=== PATIENT | male | born 1935 | race Caucasian/White ===

== ENCOUNTER 2020-11-09 02:13 | Emergency (ER) | payer MEDICARE, MEDICAID, SELFPAY ==
[2020-11-09 03:09] VITALS: BP 166/83; PULSE 83; RESP 18; TEMP 37.1; O2SAT 96
--- NOTE | 2020-11-09 03:19 | ED_ITS ---
HPI - Male Genitourinary General Chief complaint: Urogenital-Male Stated complaint: blood in urine Time Seen by Provider: 11/09/20 02:53 Source: EMS and other Mode of arrival: EMS History of Present Illness HPI Narrative: 85-year-old male brought in by EMS for reported acute onset of hematuria by nursing staff and is currently being treated for UTI. Patient denies any fever, chills, GI or symptoms and denies any shortness of breath o r chest pain. Related Data Allergies Allergy/AdvReac Type Severity Reaction Status Date / Time No Known Allergies Allergy Unverified 11/09/20 02:53 Review of Systems Review of Systems: Pertinent positives and negatives as stated in HPI and 10 point review of systems unable to be completed secondary to patient's underlying medical conditions. [facility] Past Medical History Source: nursing notes reviewed Social History Social History Advance Directives: No Advance Directives Information Provided: No Physical Exam Vital Signs: Vital Signs: Last Vital Signs Temp 98.8 F 11/09/20 03:09 Pulse 83 11/09/20 03:09 Resp 18 11/09/20 03:09 BP 166/83 H 11/09/20 03:09 Pulse Ox 96 11/09/20 03:09 Body Mass Index 0.0 VITAL SIGNS: Reviewed. GENERAL: Well developed, well nourished, in no acute distress. HEAD: Normocephalic/atraumatic EYES: PERRLA, EOMI OROPHARYNX: no oral lesions noted, posterior pharynx clear LUNGS: Normal breath sounds. No adventitious sounds or accessory muscle use. SpO2<96> CARDIOVASCULAR: Regular rate and rhythm without noted murmurs, no JVD or lower extremity edema. ABDOMEN: Soft, non-tender, non-distended with bowel sounds. : Delgadillo catheter with significant hematuria noted. SKIN: Inspection of the skin reveals no rashes NEUROLOGIC: Alert and oriented x 4. Strength and sensation to light touch were grossly intact x 4. Course Course Course Narrative: 85-year-old male with history and clinical presentation consistent on evaluation of traumatic pulling such that it resulted in significant bleeding. The catheter was removed and replaced with a new 1 with irrigation of 500 mL of saline with good clearance of blood and recovering yellow urine. The catheter bag was replaced and patient is stable for transfer back to the SNF and there is no indications for further laboratory or imaging workup. Discharge Plan Discharge Clinical Impression: Hematuria, Complication of Delgadillo catheter Patient Disposition: [facility] Instructions: Hematuria (ED), Delgadillo Catheter Placement and Care (ED) Additional Instructions: 1. Patient may resume all prescribed medications. 2. Recommend following up with primary care provider and/or Urology within the next 1-2 days for re-evaluation. Return to the ER for acute worsening of problems. Referrals: Jonel Culver MD [Primary Care Provider] - 2 days
--- NOTE | 2020-11-09 03:57 | PC.NURSE ---
PER MD BALLOON DEFLATED, CATH REPOSITIONED, BALLOON REINFLATED AND PATIENT MANUALLY IRRIGATED UNTIL URINE RAN CLEAR. IT APPEARS D/T POSITIONING AND CATH SECURE BEING OFF THAT IS WHAT CAUSED THE HEMATURIA. CABRERA AT [facility] AND HAS UPDATED AND GIVEN PLAN OF CARE
== END 2020-11-09 04:46 | disposition skilled nursing facility (03) ==
PROVIDERS: Emergency Provider Student in an Organized Health Care Education/Training Program; PCP Family Medicine Geriatric Medicine
DX: R31.9 Hematuria, unspecified (principal); T83.091A Other mechanical complication of indwelling urethral catheter, initial encounter; I10 Essential (primary) hypertension; I48.91 Unspecified atrial fibrillation; E78.5 Hyperlipidemia, unspecified; F03.90 Unspecified dementia, unspecified severity, without behavioral disturbance, psychotic disturbance, mood disturbance, and anxiety
CPT/HCPCS: 51702; 99283; 99284

== ENCOUNTER 2020-11-16 09:31 | Emergency (ER) | payer MEDICARE, MEDICAID, SELFPAY ==
--- NOTE | ~2020-11-16 | CT_ITS ---
EXAMINATION: CT ABDOMEN AND PELVIS WITH CONTRAST CLINICAL INFORMATION: Status post recent catheter at [facility]. Now presents with hematuria question perforation. COMPARISON: None TECHNIQUE: Multidetector volumetric images were obtained from the superior aspect of the liver through the pubic symphysis following administration 85 mL of Omnipaque 350 intravenous contrast. Sagittal and coronal reformatted images were obtained on the technologist's workstation. Oral contrast: No This CT examination was performed using dose optimization techniques as appropriate, variously including the following: *Automated exposure control *Adjustment of mA and/or kV according to patient size (this includes techniques or standardized protocols for targeted exams where dose is matched to indication/reason for exam; i.e. extremities or head) *Use of iterative reconstruction technique DLP: 581 mGy-cm FINDINGS: LUNG BASES: There is small bilateral pleural effusion with left lower lobe consolidation and atelectatic/minimal consolidation changes right lung base. LIVER, GALLBLADDER, AND BILIARY TREE: The liver is normal in size, shape, and attenuation. No focal hepatic lesion or biliary ductal dilatation is present. The gallbladder is unremarkable with no evidence of radiopaque gallstones, gallbladder wall thickening, or obvious pericholecystic inflammatory changes. PANCREAS: Unremarkable. SPLEEN: The spleen is unremarkable. A small accessory splenule inferior to the hilum.. ADRENAL GLANDS: Unremarkable. KIDNEYS AND URETERS: The kidneys are normal in size, shape, and attenuation. No hydronephrosis, hydroureter, or calculi seen. No perinephric stranding or hematoma seen. Large exophytic cyst seen in the mid to lower pole left kidney measuring 5.8 x 5.4 x 4.70 cm. There is a smaller cortical cyst mid and upper pole left kidney. Tiny cysts are seen in the lower pole right kidney. There is extensive vascular calcification the renal hilum BLADDER: The bladder is distended with mild posterior wall thickening. There is mild prostate enlargement with extension into the base of bladder. GASTROINTESTINAL TRACT: The scattered stool and gas seen throughout the colon without any significant distention. The small bowel loops are normal caliber. Appendix is not visualized. There is a supraumbilical small hernia containing fat best visualized on sagittal exam 56/7. ABDOMINAL WALL: No significant hernia is appreciated. LYMPH NODES: Normal. VASCULAR: There is aorto iliac bilateral grafts dense. PELVIC VISCERA: Does not stomach mild presacral soft tissue thickening but no abscess or fluid collection seen.. OSSEOUS STRUCTURES: There are degenerative disc changes with vacuum disc phenomena and spondylosis L5-S1 disc level. CT/CT abdomen pelvis w con IMPRESSION: Moderate bladder distention likely secondary to prostate enlargement extending the base of bladder. There is no hydroureteronephrosis or radiopaque renal calculi. There are bilateral renal cysts but no perinephric hematoma or stranding. Small right pleural effusion with right lower lobe atelectasis/infiltrate. There is left lower lobe consolidation with minimal left pleural effusion.
[2020-11-16 09:35] VITALS: BP 159/65; PULSE 80; O2SAT 97
[2020-11-16 09:46] VITALS: BP 155/62; PULSE 87; RESP 15; TEMP 36.3; O2SAT 96
[2020-11-16 09:55] VITALS: BP 155/62; PULSE 89; RESP 22; TEMP 36.3; O2SAT 97; BMI 28.5
[2020-11-16 10:24] LABS: MANUAL DIFF FLAG NO
[2020-11-16 10:26] LABS: Basophils Percent Auto 0.5 % (0-2); Eosinophils Absolute Auto 0.6 X10*3/uL (0.0-0.4); Eosinophils Percent Auto 10.9 % (0-4); Hematocrit 29.8 % (42-52); Hemoglobin 9.5 g/dl (14.0-18.0); Imm Gran Abs Auto 0.02 X10*3/uL (0.00-0.03); Imm Gran Pct Auto 0.4 % (0.0-0.4); Mean Corpuscular HGB Conc 31.9 g/dl (31.0-36.0); Mean Corpuscular Hemoglobin 25.9 pg (27.0-33.0); Mean Corpuscular Volume 81.2 fL (80-98); Mean Platelet Volume 9.5 fL (9.4-12.4); Monocytes Absolute Auto 0.6 X10*3/uL (0.1-1.2); Monocytes Percent Auto 10.2 % (2-11); Neutrophils Absolute Auto 3.4 X10*3/uL (2.0-8.3); Platelet Count 196 X10*3/uL (160-400); Red Blood Count 3.67 X10*6/uL (4.60-5.80); Red Cell Distribution Width 14.9 % (11.0-16.0); White Blood Count 5.7 X10*3/uL (4.8-10.8)
[2020-11-16 10:30] LABS: INTERNATIONAL NORM RATIO 2.7 (0.9-1.1); Prothrombin Time 31.2 SEC (9.9-13.0)
[2020-11-16 11:00] LABS: Alanine Aminotransferase 10 U/L (0-40); Albumin Level 2.8 g/dL (3.5-5.0); Alkaline Phosphatase 100 U/L (39-117); Anion Gap 10 (12-20); Aspartate Amino Transferase 14 U/L (5-37); Bilirubin Total 0.7 mg/dL (0.0-1.0); Blood Urea Nitrogen 11 mg/dL (9-16); Calcium 7.9 mg/dL (8.4-10.2); Carbon Dioxide 25 mmol/L (22-29); Chloride 110 mmol/L (96-108); Creatinine Clr Calc Pharmacy 86.2; Estimated Glomerular Filt Rate > 60; Glucose Random 112 mg/dL (60-115); Magnesium 1.9 mg/dL (1.6-2.6); Potassium 3.5 mmol/L (3.3-5.1); Sodium 141 mmol/L (135-145); Total Protein 4.9 g/dL (6.5-8.0)
--- NOTE | 2020-11-16 11:55 | ED.MALEGU ---
HPI - Male Genitourinary General Chief complaint: General Medical Stated complaint: BLEEDING FROM URETHRA AFTER TUGGING F/C PER SNF Time Seen by Provider: 11/16/20 09:49 Source: patient, EMS and RN notes reviewed Mode of arrival: EMS Limitations: other (Poor historian) History of Present Illness HPI Narrative: 85-year-old male with a past medical history of dementia, atrial fibrillation currently on Coumadin, non rheumatic aortic valve stenosis, hypertension, hyperlipidemia, PVD, anemia, unsteady on his feet, BPH and recurrent UTIs who had a chronic Delgadillo in the past although was recently seen here on 11/09/2020 due to he pulled out his Delgadillo catheter and had hematuria therefore he was sent back to the [facility] without the Delgadillo catheter due to he was pulling his catheter out and they were straight cathing him and then this morning when they attempted to straight cath him he had hematuria therefore they sent him here for further evaluation treatment. On exam patient is noted to have hematuria although he denies any pain and reports he does not feel like he needs to be here. Denies any additional complaints or concerns at this time. MD Complaint: other (Hematuria) Onset (ago): minute(s) (Prior to arrival) Duration: now resolved Location: penis Severity: mild Relieving factors: none Exacerbating factors: urination (Trying to straight cath the patient) Context: trauma ([facility]) Associated symptoms: Reports denies other symptoms Related Data Sexually active: No Previous Rx's Medication Instructions Recorded cefuroxime axetil 500 mg tablet 500 mg PO BID 7 Days #14 tab 11/16/20 Allergies Allergy/AdvReac Type Severity Reaction Status Date / Time No Known Allergies Allergy Unverified 11/09/20 02:53 Review of Systems Review of Systems: Constitutional : No Weight loss, No Fever, No Chills, No Night Sweats, No Fatigue, No Malaise ENT/Mouth : No Hearing loss, No Ear Pain, No Nasal Congestion, No Sinus Pain, No Hoarseness, No sore throat, No Rhinorrhea, No Swallowing Difficulty Eyes: No Eye Pain, No Swelling, No Redness, No Foreign Body, No Discharge, No Vision Changes Cardiovascular : No Chest Pain, No SOB, No Dyspnea on Exertion, No Orthopnea, No Edema, No Palpitations Respiratory : No Cough, No Sputum, No Wheezing, No Smoke Exposure, No Dyspnea Gastrointestinal : Positive Nausea, Positive Vomiting, positive Diarrhea, positive abdominal Pain, No Hematochezia, No Melena Genitourinary : Positive hematuria, no irregular bleeding, No Dysuria, No Urinary Frequency, No Urgency, No Flank Pain, No Urinary Flow Changes, No Hesitancy Musculoskeletal : No joint pain, No Myalgias, No Joint Swelling Skin : No Skin Lesions, No rash Neuro : No Weakness, No Numbness, No Paresthesias, No Loss of Consciousness, No Dizziness, No Headache Psych : No Anxiety/Panic, No Depression, No SI/HI/AH/VH, No Social Issues, Heme/Lymph: No Bruising, No Bleeding,No Lymphadenopathy Endocrine : No Polyuria, No Polydipsia, No Temperature Intolerance Yes all other systems are reviewed and are negative [facility] Past Medical History Attestation statement: The following information was validated with the patient. Social History Social History Alcohol intake: former Patient Tobacco Use Status: Never used Tobacco Use of substances other than those prescribed or required for medical reasons: No Advance Directives: Yes Advance Directives Information Provided: Yes Advance Directives on File: No Physical Exam Vital Signs: Vital Signs: Last Vital Signs Temp 97.4 F 11/16/20 12:25 Pulse 77 11/16/20 12:25 Resp 18 11/16/20 12:25 BP 143/62 H 11/16/20 12:25 Pulse Ox 97 11/16/20 12:25 Body Mass Index 28.5 vital signs have been reviewed as normal and appeared to be correct. Blood pressure hypertensive 155/62 Heart rate normal. Respiration rate normal. Temperature normal. Oxygen saturation normal. Appearance: Alert. Pleasantly confused at baseline. No acute distress. Head: Normal external exam. Normocephalic. Atraumatic. Eyes: PERRLA. EOMI. Conjunctiva and sclera normal. Eyelids normal. ENT: Pharynx normal. Uvula midline. Moist mucous membranes. Neck: Normal inspection. Neck supple. FROM. No adenopathy. No meningeal signs. CVS: Normal heart rate and rhythm. Heart sound normal. No murmurs noted. Pulses normal throughout. Respiratory: No respiratory distress. Painless inspiration. Breath sounds normal. No wheezes/rales/rhonchi noted. Chest nontender. No accessory muscle usage noted or decreased air movement noted. Abdomen: Soft and nontender. Bowel sounds normal in all 4 quadrants. No distention noted. No organomegaly noted. No visible injury noted. : Chaperoned by RAYA Kessler. At the tip of the penis patient noted to have dry blood no active bleeding signs of infection/ecchymosis/erythema/edema/rashes/lesions. No hernia noted. No inguinal lymphadenopathy noted. No lacerations/lesions/induration or tenderness noted. Normal penis. No Condyloma noted. No ecchymosis/erythema/swelling/edematous/mass/nodule/papules/pustules/vesicles. Not consistent with paraphimosis or phimosis. No ulcerations or lesions noted. The meatus is normal. No meatal discharge noted. No blood at the meatus. The scrotum is normal. Cremasteric reflex absent. No ecchymosis/edematous/erythema noted. Testicles are both descended bilaterally. No hydrocele noted. No inguinal hernia noted. No scrotal mass/swelling noted. No ulcerations or varicocele. Testicles appear normal. They lie normal. Epididymides normal. No blue dot sign. Testicles are not enlarged. No epididymal induration/mass/tenderness. No testicular mass noted. No testicular swelling/tenderness. No high-riding testicle noted. No testicular atrophy noted. Back: No CVA tenderness. Full range of motion noted. Skin: Skin warm and dry. Normal skin color. Normal skin turgor. No rashes/lesions/lacerations noted. Extremities: Extremities exhibit normal range of motion. Extremities nontender. Neuro: Alert and pleasantly confused at baseline. No motor deficit. No sensory deficit. Reflexes normal. Course Course Course Narrative: 10am - 85-year-old male presenting to the ED after he was straight cath and was noted to have hematuria at [facility] facility therefore they sent him here for further evaluation and treatment. On exam patient is alert although pleasantly confused at baseline. Not in any acute distress . Lungs clear to auscultation.CV RRR. Abdomen is soft nontender. Dry blood noted at the tip of the penis otherwise no signs of infection or ecchymosis swelling noted Plan: labs, UA, CT scan of abd/pelvis c IV contrast, bladder scan then re-evaluate. Reevaluation(s) Reevaluation #1: - labs return patient with anemia although in his history he has a history of anemia. He is not actively bleeding have any comparison although patient asymptomatic to his anemia at this time. PT INR 31.2/2.7. Otherwise all other labs are within normal limits Time: 12:56 Reevaluation #2: - CT scan of abdomen and pelvis with IV contrast revealed moderate bladder distention likely secondary to prostate enlargement extending to the base of the bladder although no hydroureteronephrosis or radial plaque renal calculi. There are bilateral renal cysts but no hematoma or stranding noted. Patient is also noted to have a small right pleural effusion with right lower lobe atelectasis/infiltrate. There is also left lower lobe consolidation with minimal left pleural effusion. - therefore at this time will replace the patient's Delgadillo catheter DC home back to the penitentiary facility [facility] and instructions to return if any new or worsening symptoms. correction updated as well by nurse. Time: 13:41 [facility] - Male Genitourinary Medical Records Attestation: I reviewed the patient's medical records. Lab Data Attestation: I reviewed the patient's lab results. Result diagrams: 11/16/20 10:19 11/16/20 10:19 Labs: Lab Results 11/16/20 11/16/20 11/16/20 Range/Units 10:19 10:19 10:19 WBC 5.7 (4.8-10.8) X10*3/uL RBC 3.67 L (4.60-5.80) X10*6/uL Hgb 9.5 L (14.0-18.0) g/dl Hct 29.8 L (42-52) % MCV 81.2 (80-98) fL MCH 25.9 L (27.0-33.0) pg MCHC 31.9 (31.0-36.0) g/dl RDW 14.9 (11.0-16.0) % Plt Count 196 (160-400) X10*3/uL MPV 9.5 (9.4-12.4) fL Immature Gran % (Auto) 0.4 (0.0-0.4) % Neut % (Auto) 60.0 (45-73) % Lymph % (Auto) 18.0 L (20-40) % [place] % (Auto) 10.2 (2-11) % Eos % (Auto) 10.9 H (0-4) % Baso % (Auto) 0.5 (0-2) % Lymph # (Auto) 1.0 L (1.2-4.9) X10*3/uL [place] # (Auto) 0.6 (0.1-1.2) X10*3/uL Eos # (Auto) 0.6 H (0.0-0.4) X10*3/uL Baso # (Auto) 0.0 (0.0-0.2) X10*3/uL Abs Immat Gran (auto) 0.02 (0.00-0.03) X10*3/uL Absolute Neuts (auto) 3.4 (2.0-8.3) X10*3/uL Absolute Nucleated RBC 0.000 (0.0-0.012) X10*3/uL Nucleated RBC % (auto) 0.0 (0.0-0.2) /100WBC PT 31.2 H (9.9-13.0) SEC INR 2.7 H (0.9-1.1) Sodium 141 (135-145) mmol/L Potassium 3.5 (3.3-5.1) mmol/L Chloride 110 H (96-108) mmol/L Carbon Dioxide 25 (22-29) mmol/L Anion Gap 10 L (12-20) BUN 11 (9-16) mg/dL Creatinine 0.75 (0.5-1.4) mg/dL Estim Creat Clear Calc 86.2 Estimated GFR > 60 Random Glucose 112 (60-115) mg/dL Calcium 7.9 L (8.4-10.2) mg/dL Magnesium 1.9 (1.6-2.6) mg/dL Total Bilirubin 0.7 (0.0-1.0) mg/dL AST 14 (5-37) U/L ALT 10 (0-40) U/L Alkaline Phosphatase 100 (39-117) U/L Total Protein 4.9 L (6.5-8.0) g/dL Albumin 2.8 L (3.5-5.0) g/dL Discharge Plan Discharge Clinical Impression: Encounter for Delgadillo catheter replacement, Pneumonia, Pleural effusion Patient Disposition: er [facility] Instructions: Delgadillo Catheter Placement and Care (ED), Pleural Effusion (ED), Bacterial Pneumonia (ED) Prescriptions: New cefuroxime axetil 500 mg tablet 500 mg PO BID 7 Days Qty: 14 RF: 0 Referrals: Frank Wu MD [Primary Care Provider] - 2 days Print Language: Tanzanian
[2020-11-16] MEDS: iohexoL 350 MG/ML 100 ML INFUS..BTL IV (12:07)
[2020-11-16 12:25] VITALS: BP 143/62; PULSE 77; RESP 18; TEMP 36.3; O2SAT 97
--- NOTE | 2020-11-16 14:08 | PC.NURSE ---
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 pt/facility are aware of pt's return to facility via ambulance.
--- NOTE | 2020-11-16 14:20 | PC.NURSE ---
pt's [id number] ([phone]) called for an updated on pt. this rn spoke with her and she was updated.
[2020-11-16 14:22] LABS: Appearance Urine CLEAR; Color Urine YELLOW; Glucose Urine UA NEG (NEG); Leukocyte Esterase Urine NEG (NEG); Nitrite Urine NEG (NEG); Urine Blood NEG (NEG); Urine Ketones NEG (NEG); Urine Protein NEG (NEG-TRACE)
== END 2020-11-16 14:27 | disposition skilled nursing facility (03) ==
PROVIDERS: Physician Assistant Medical; Emergency Provider Emergency Medicine; PCP Internal Medicine
DX: R31.9 Hematuria, unspecified (principal); J18.9 Pneumonia, unspecified organism; J90 Pleural effusion, not elsewhere classified; Z46.6 Encounter for fitting and adjustment of urinary device
CPT/HCPCS: 36415; 51702; 51798; 74177; 80053; 81003; 83735; 85025; 85610; 99285; Q9967